=== PATIENT | male | born 1990 | race Caucasian/White ===

== ENCOUNTER 2019-08-20 14:36 | Inpatient (IN) | payer MEDICAID ==
[~2019-08-20] VITALS: Ht 188 cm; Wt 136.1 kg
[2019-08-20] MEDS ORDERED: NALOXONE HCL 0.4 MG/ML 1ML VIAL ONE ×2 (14:50→14:59)
[2019-08-20] MEDS: NALOXONE HCL 0.4 MG/ML 1ML VIAL IV PRN ×2 (15:00→15:15)
[2019-08-20] MEDS ORDERED: ONDANSETRON HCL 4MG/2ML INJ IV STA (15:10)
[2019-08-20] MEDS ORDERED: SODIUM CHLORIDE 0.9% 1,000 ML IV ONE (15:10)
[2019-08-20 15:26] LABS: BASOPHILS % 0.8 % (0.0-2.0); EOSINOPHILS % 0.5 % (0.0-5.0); HEMATOCRIT. 37.7 % (42.0-52.0); HEMOGLOBIN. 12.1 g/dL (14.0-18.0); LYMPHOCYTES % 20.4 % (20.0-50.0); MEAN CORPUSCULAR HEMOGLOBIN 26.5 pg (28.0-32.0); MEAN CORPUSCULAR VOLUME 82.5 fL (80.0-94.0); MEAN PLATELET VOLUME 6.9 fl (7.4-10.4); MONOCYTES % 8.8 % (2.0-8.0); NEUTROPHILS % 69.5 % (40.0-76.0); PLATELET 377 x1000/uL (130-400); RED BLOOD CELL COUNT 4.57 mill/uL (4.7-6.1); RED CELL DISTRIBUTION WIDTH 19.2 % (11.6-14.6)
[2019-08-20 15:30] LABS: CHLORIDE 92 mEq/L (98-107)
[2019-08-20 15:35] LABS: ETHANOL BLOOD < 10 mg/dL
[2019-08-20] MEDS ORDERED: NALOXONE 2 MG in SODIUM CHLORIDE 0.9% 500 ML IV SCH (15:45)
[2019-08-20] MEDS ORDERED: NALOXONE HCL 1 MG/ML 2ML VIAL ONE (15:50)
[2019-08-20] MEDS ORDERED: SUCCINYLCHOLINE CHLORIDE 200MG/10ML IV ONE (16:15)
[2019-08-20] MEDS ORDERED: PROPOFOL 10MG/ML 100ML 100 ML IV ONE (16:15)
[2019-08-20] MEDS ORDERED: MIDAZOLAM HCL 100 MG in DEXT 5% WATER 80 ML IV PRN ×2 (16:45→18:00)
[2019-08-20] MEDS ORDERED: FENTANYL CITRATE/PF 1,000 MCG in SODIUM CHLORIDE 0.9% 80 ML IV PRN (16:45)
[2019-08-20] MEDS ORDERED: PROPOFOL 10MG/ML 100ML 100 ML IV SCH (16:45)
[2019-08-20 17:32] LABS: BG BASE EXCESS -0.3 mmol/L (-2.0-2.0); BG CARBOXYHEMOGLOBIN 0.9 % (0.5-1.5); BG DEOXYHEMOGLOBIN 0.3 % (0.0-5.0); BG FRACTION INSPIRED OXYGEN 100; BG HCO3 ACT 27.5 mmol/L (22.0-26.0); BG METHEMOGLOBIN 0.3 % (0.0-1.5); BG OXYGEN SATURATION 99.7 % (92.0-98.5); BG OXYHEMOGLOBIN 98.5 % (94.0-97.0); BG PCO2 60.1 mmHg (35.0-45.0); BG PH 7.278 (7.350-7.450); BG PO2 469.9 mmHg (75.0-100.0); BG SAMPLE SITE RIGHT RADIAL; BG TIDAL VOLUME(mL) 500 mL; BG TOTAL HEMOGLOBIN 12.1 g/dL (12.0-18.0); BG VENT MODE VENT - A/C; BG VENT RATE 14 set
[2019-08-20] MEDS ORDERED: IPRATROPIUM/ALBUTEROL 0.5-3(2.5)MG/3ML NEB HHN SCH (18:00)
[2019-08-20 18:32] LABS: CLARITY URINE CLOUDY (CLEAR); COLOR URINE DARK YELLOW (YELLOW); KETONES URINE TRACE (NEGATIVE); LEUKOCYTE ESTERASE URINE TRACE (NEGATIVE); NITRITE URINE NEGATIVE (NEGATIVE); OCCULT BLOOD URINE 3+ (NEGATIVE); PH URINE 5.5 (4.5-8.0); PROTEIN URINE 3+ (NEGATIVE); SPECIFIC GRAVITY URINE 1.021 (1.005-1.030)
[2019-08-20 18:55] LABS: *AMPHETAMINES SCREEN URINE PRESUMTIVE POSITIVE (NEGATIVE)
[2019-08-20 18:56] LABS: *BARBITURATES SCREEN URINE NEGATIVE (NEGATIVE); *BENZODIAZEPINES SCREEN URINE NEGATIVE (NEGATIVE); *COCAINE SCREEN URINE NEGATIVE (NEGATIVE); CANNABINOID URINE SCREEN NEGATIVE (NEGATIVE); METHADONE URINE SCREEN NEGATIVE (NEGATIVE); OPIATES URINE SCREEN NEGATIVE (NEGATIVE); PHENCYCLIDINE URINE SCREEN NEGATIVE (NEGATIVE)
[2019-08-20] MEDS ORDERED: HYDROMORPHONE HCL/PF 2MG/ML CPJ IV PRN (19:00)
[2019-08-20] MEDS ORDERED: LORAZEPAM 2MG/ML CPJ IV PRN (19:00)
[2019-08-20] MEDS: PIPERACILLIN/TAZOBACTAM 3.375 G in DEXT 5% WATER 100 ML IV SCH (22:52)
[2019-08-20] MEDS: DEXT 5%/0.45% NACL KCL 10MEQ/L 1,000 ML IV SCH (23:30)
[2019-08-21] MEDS: ENOXAPARIN 40MG/0.4ML SYR SUBCUT SCH ×3 (01:20→21:14)
[2019-08-21] MEDS: PIPERACILLIN/TAZOBACTAM 3.375 G in DEXT 5% WATER 100 ML IV SCH ×2 (06:00→19:15)
[2019-08-21] MEDS ORDERED: PROPOFOL 10MG/ML 100ML 100 ML IV ONE (06:32)
[2019-08-21] MEDS: DEXT 5%/0.45% NACL KCL 10MEQ/L 1,000 ML IV SCH ×2 (09:20→22:32)
[2019-08-21 09:40] LABS: BG BASE EXCESS 2.5 mmol/L (-2.0-2.0); BG CARBOXYHEMOGLOBIN 0.9 % (0.5-1.5); BG DEOXYHEMOGLOBIN 1.5 % (0.0-5.0); BG FRACTION INSPIRED OXYGEN 40; BG METHEMOGLOBIN 0.2 % (0.0-1.5); BG OXYGEN SATURATION 98.5 % (92.0-98.5); BG OXYHEMOGLOBIN 97.4 % (94.0-97.0); BG PCO2 53.6 mmHg (35.0-45.0); BG PH 7.351 (7.350-7.450); BG SAMPLE SITE RIGHT RADIAL; BG TIDAL VOLUME(mL) 500 mL; BG TOTAL HEMOGLOBIN 11.6 g/dL (12.0-18.0); BG VENT MODE VENT - A/C; BG VENT RATE 16 set
[2019-08-21 09:53] LABS: CHLORIDE 97 mEq/L (98-107)
[2019-08-21 09:54] LABS: BASOPHILS % 0.8 % (0.0-2.0); EOSINOPHILS % 0.9 % (0.0-5.0); HEMATOCRIT. 33.8 % (42.0-52.0); HEMOGLOBIN. 10.7 g/dL (14.0-18.0); LYMPHOCYTES % 11.1 % (20.0-50.0); MEAN CORPUSCULAR HEMOGLOBIN 25.8 pg (28.0-32.0); MEAN CORPUSCULAR VOLUME 81.3 fL (80.0-94.0); MEAN PLATELET VOLUME 6.7 fl (7.4-10.4); MONOCYTES % 8.1 % (2.0-8.0); NEUTROPHILS % 79.1 % (40.0-76.0); PLATELET 283 x1000/uL (130-400); RED BLOOD CELL COUNT 4.15 mill/uL (4.7-6.1); RED CELL DISTRIBUTION WIDTH 19.4 % (11.6-14.6)
[2019-08-21] MEDS ORDERED: PROPOFOL 10MG/ML 100ML 100 ML IV PRN (11:15)
[2019-08-22] VITALS (32 sets, daily range): BP systolic 103–136; BP diastolic 36–90
[2019-08-22] MEDS: PIPERACILLIN/TAZOBACTAM 3.375 G in DEXT 5% WATER 100 ML IV SCH ×3 (06:00→20:24)
[2019-08-22] MEDS ORDERED: LORAZEPAM 2MG/ML CPJ IV ONE (08:45)
[2019-08-22] MEDS ORDERED: FUROSEMIDE 40MG/4ML VIAL IVP SCH (09:00)
[2019-08-22 09:06] LABS: BG CARBOXYHEMOGLOBIN 0.7 % (0.5-1.5); BG FRACTION INSPIRED OXYGEN 40; BG HCO3 ACT 27.7 mmol/L (22.0-26.0); BG METHEMOGLOBIN 0.3 % (0.0-1.5); BG PCO2 42.9 mmHg (35.0-45.0); BG PH 7.428 (7.350-7.450); BG SAMPLE SITE RIGHT RADIAL; BG TIDAL VOLUME(mL) 500 mL; BG TOTAL HEMOGLOBIN 11.1 g/dL (12.0-18.0); BG VENT MODE VENT - A/C; BG VENT RATE 16 set
[2019-08-22] MEDS ORDERED: DILTIAZEM HCL 5MG/ML 25ML VIAL IV SCH (09:30)
[2019-08-22] MEDS ORDERED: DILTIAZEM HCL 5MG/ML 5ML VIAL IV SCH (09:30)
[2019-08-22] MEDS ORDERED: LIDOCAINE HCL 1% 20ML VIAL (Pyxis) INJ ONE (09:40)
[2019-08-22] MEDS: ENOXAPARIN 40MG/0.4ML SYR SUBCUT SCH (09:44)
[2019-08-22] MEDS: IPRATROPIUM BROMIDE (0.02%) 0.5MG/2.5ML NEB HHN SCH ×3 (09:54→19:54)
[2019-08-22] MEDS: DEXT 5%/0.45% NACL KCL 10MEQ/L 1,000 ML IV SCH ×2 (12:00→13:00)
[2019-08-22] MEDS: PANTOPRAZOLE SODIUM 40 MG/VIAL IV SCH (13:33)
[2019-08-22] MEDS: FUROSEMIDE 40MG/4ML VIAL IVP SCH (13:33)
[2019-08-22] MEDS: ASPIRIN 81MG TABLET PO SCH (13:33)
[2019-08-22] MEDS: DILTIAZEM HCL 125 MG in DEXT 5% WATER 100 ML IV PRN (13:35)
[2019-08-22] MEDS: PROPOFOL 10MG/ML 100ML 100 ML IV PRN ×2 (13:43→20:56)
[2019-08-22] MEDS ORDERED: VANCOMYCIN 2,000 MG in DEXT 5% WATER 500 ML IV SCH (14:00)
[2019-08-22 16:34] LABS: INR 1.3; PROTHROMBIN TIME 13.6 sec (9.6-11.0)
[2019-08-22] MEDS: ENOXAPARIN 150MG/ML SYR SUBCUT SCH (17:44)
[2019-08-22] MEDS: VANCOMYCIN 1500MG in DEXTROSE 5% WATER 250ML IV SCH (23:00)
[2019-08-23] VITALS (79 sets, daily range): BP systolic 88–195; BP diastolic 36–172
[2019-08-23] MEDS: PROPOFOL 10MG/ML 100ML 100 ML IV PRN ×5 (00:48→21:06)
[2019-08-23] MEDS: IPRATROPIUM BROMIDE (0.02%) 0.5MG/2.5ML NEB HHN SCH ×4 (01:55→20:18)
[2019-08-23] MEDS: DEXT 5%/0.45% NACL KCL 10MEQ/L 1,000 ML IV SCH ×2 (02:48→13:47)
[2019-08-23] MEDS: PIPERACILLIN/TAZOBACTAM 3.375 G in DEXT 5% WATER 100 ML IV SCH ×4 (02:49→20:00)
[2019-08-23] MEDS: ENOXAPARIN 150MG/ML SYR SUBCUT SCH ×2 (06:57→17:11)
[2019-08-23 06:58] LABS: BASOPHILS % 0.6 % (0.0-2.0); EOSINOPHILS % 3.8 % (0.0-5.0); HEMOGLOBIN. 10.4 g/dL (14.0-18.0); LYMPHOCYTES % 14.9 % (20.0-50.0); MEAN CORPUSCULAR HEMOGLOBIN 25.8 pg (28.0-32.0); MEAN CORPUSCULAR VOLUME 81.6 fL (80.0-94.0); MEAN PLATELET VOLUME 6.9 fl (7.4-10.4); MONOCYTES % 8.4 % (2.0-8.0); NEUTROPHILS % 72.3 % (40.0-76.0); PLATELET 277 x1000/uL (130-400); RED BLOOD CELL COUNT 4.04 mill/uL (4.7-6.1); RED CELL DISTRIBUTION WIDTH 19.5 % (11.6-14.6)
[2019-08-23] MEDS: DILTIAZEM HCL 125 MG in DEXT 5% WATER 100 ML IV PRN (06:58)
[2019-08-23 07:14] LABS: CHLORIDE 96 mEq/L (98-107)
[2019-08-23] MEDS: FUROSEMIDE 40MG/4ML VIAL IVP SCH (08:46)
[2019-08-23] MEDS: ASPIRIN 81MG TABLET PO SCH (08:46)
[2019-08-23] MEDS: PANTOPRAZOLE SODIUM 40 MG/VIAL IV SCH (08:46)
[2019-08-23 08:48] LABS: BG BASE EXCESS 0.7 mmol/L (-2.0-2.0); BG CARBOXYHEMOGLOBIN 0.6 % (0.5-1.5); BG DEOXYHEMOGLOBIN 2.8 % (0.0-5.0); BG FRACTION INSPIRED OXYGEN 40; BG HCO3 ACT 26.1 mmol/L (22.0-26.0); BG METHEMOGLOBIN 0.2 % (0.0-1.5); BG OXYGEN SATURATION 97.2 % (92.0-98.5); BG OXYHEMOGLOBIN 96.4 % (94.0-97.0); BG PCO2 45.4 mmHg (35.0-45.0); BG PH 7.378 (7.350-7.450); BG PO2 97.8 mmHg (75.0-100.0); BG SAMPLE SITE RIGHT RADIAL; BG TIDAL VOLUME(mL) 500 mL; BG TOTAL HEMOGLOBIN 11.4 g/dL (12.0-18.0); BG VENT MODE VENT - A/C; BG VENT RATE 16 set
[2019-08-23] MEDS: VANCOMYCIN 1500MG in DEXTROSE 5% WATER 250ML IV SCH ×2 (11:31→23:41)
[2019-08-23] MEDS: DILTIAZEM HCL 30MG TABLET PO SCH ×2 (12:00→17:10)
[2019-08-23] MEDS: ACETYLCYSTEINE 100MG/ML 10% VIAL 4ML INH SCH ×2 (14:52→20:18)
[2019-08-24] VITALS (92 sets, daily range): BP systolic 68–142; BP diastolic 39–103
[2019-08-24] MEDS: DILTIAZEM HCL 30MG TABLET PO SCH ×5 (00:07→23:27)
[2019-08-24] MEDS: PIPERACILLIN/TAZOBACTAM 3.375 G in DEXT 5% WATER 100 ML IV SCH ×4 (02:00→20:57)
[2019-08-24] MEDS: IPRATROPIUM BROMIDE (0.02%) 0.5MG/2.5ML NEB HHN SCH ×4 (02:16→20:33)
[2019-08-24] MEDS: PROPOFOL 10MG/ML 100ML 100 ML IV PRN ×4 (02:43→21:55)
[2019-08-24] MEDS: DEXT 5%/0.45% NACL KCL 10MEQ/L 1,000 ML IV SCH ×2 (05:24→15:22)
[2019-08-24] MEDS: ENOXAPARIN 150MG/ML SYR SUBCUT SCH ×2 (06:00→17:07)
[2019-08-24 07:29] LABS: CHLORIDE 98 mEq/L (98-107)
[2019-08-24 07:37] LABS: BASOPHILS % 0.9 % (0.0-2.0); EOSINOPHILS % 3.3 % (0.0-5.0); HEMATOCRIT. 32.8 % (42.0-52.0); HEMOGLOBIN. 10.7 g/dL (14.0-18.0); LYMPHOCYTES % 9.4 % (20.0-50.0); MEAN CORPUSCULAR HEMOGLOBIN 26.4 pg (28.0-32.0); MEAN CORPUSCULAR VOLUME 81.1 fL (80.0-94.0); MEAN PLATELET VOLUME 6.9 fl (7.4-10.4); NEUTROPHILS % 78.4 % (40.0-76.0); PLATELET 307 x1000/uL (130-400); RED BLOOD CELL COUNT 4.05 mill/uL (4.7-6.1); RED CELL DISTRIBUTION WIDTH 19.3 % (11.6-14.6)
[2019-08-24] MEDS: ACETYLCYSTEINE 100MG/ML 10% VIAL 4ML INH SCH ×2 (08:36→20:33)
[2019-08-24] MEDS: FUROSEMIDE 40MG/4ML VIAL IVP SCH (09:09)
[2019-08-24] MEDS: ASPIRIN 81MG TABLET PO SCH (09:09)
[2019-08-24] MEDS: PANTOPRAZOLE SODIUM 40 MG/VIAL IV SCH (09:09)
[2019-08-24] MEDS: ACETAMINOPHEN 325MG TABLET PO PRN (09:10)
[2019-08-24] MEDS: VANCOMYCIN 1250MG in DEXTROSE 5% WATER 250ML IV SCH (17:05)
[2019-08-24] MEDS: IPRATROPIUM/ALBUTEROL 0.5-3(2.5)MG/3ML NEB HHN PRN (20:33)
[2019-08-25] VITALS (84 sets, daily range): BP systolic 87–137; BP diastolic 47–97
[2019-08-25] MEDS: IPRATROPIUM BROMIDE (0.02%) 0.5MG/2.5ML NEB HHN SCH ×5 (01:57→20:47)
[2019-08-25] MEDS: PIPERACILLIN/TAZOBACTAM 3.375 G in DEXT 5% WATER 100 ML IV SCH ×4 (02:10→21:20)
[2019-08-25] MEDS: PROPOFOL 10MG/ML 100ML 100 ML IV PRN ×5 (02:11→22:00)
[2019-08-25] MEDS: DILTIAZEM HCL 30MG TABLET PO SCH (05:15)
[2019-08-25] MEDS: VANCOMYCIN 1250MG in DEXTROSE 5% WATER 250ML IV SCH ×2 (05:15→21:20)
[2019-08-25] MEDS: DEXT 5%/0.45% NACL KCL 10MEQ/L 1,000 ML IV SCH (05:15)
[2019-08-25] MEDS: ENOXAPARIN 150MG/ML SYR SUBCUT SCH ×2 (05:16→18:15)
[2019-08-25 06:26] LABS: BASOPHILS % 0.6 % (0.0-2.0); EOSINOPHILS % 4.1 % (0.0-5.0); HEMATOCRIT. 34.1 % (42.0-52.0); LYMPHOCYTES % 11.8 % (20.0-50.0); MEAN CORPUSCULAR HEMOGLOBIN 26.4 pg (28.0-32.0); MEAN CORPUSCULAR VOLUME 81.8 fL (80.0-94.0); MEAN PLATELET VOLUME 6.8 fl (7.4-10.4); MONOCYTES % 6.6 % (2.0-8.0); NEUTROPHILS % 76.9 % (40.0-76.0); PLATELET 313 x1000/uL (130-400); RED BLOOD CELL COUNT 4.17 mill/uL (4.7-6.1); RED CELL DISTRIBUTION WIDTH 19.5 % (11.6-14.6)
[2019-08-25 06:31] LABS: CHLORIDE 99 mEq/L (98-107)
[2019-08-25 08:34] LABS: BG BASE EXCESS 2.7 mmol/L (-2.0-2.0); BG CARBOXYHEMOGLOBIN 0.8 % (0.5-1.5); BG DEOXYHEMOGLOBIN 3.2 % (0.0-5.0); BG FRACTION INSPIRED OXYGEN 40; BG HCO3 ACT 28.1 mmol/L (22.0-26.0); BG METHEMOGLOBIN 0.1 % (0.0-1.5); BG OXYGEN SATURATION 96.8 % (92.0-98.5); BG OXYHEMOGLOBIN 95.9 % (94.0-97.0); BG PH 7.395 (7.350-7.450); BG PO2 90.8 mmHg (75.0-100.0); BG SAMPLE SITE RIGHT RADIAL; BG TIDAL VOLUME(mL) 500 mL; BG TOTAL HEMOGLOBIN 11.5 g/dL (12.0-18.0); BG VENT MODE VENT - A/C; BG VENT RATE 16 set
[2019-08-25] MEDS: PANTOPRAZOLE SODIUM 40 MG/VIAL IV SCH (08:58)
[2019-08-25] MEDS: ASPIRIN 81MG TABLET PO SCH (08:58)
[2019-08-25] MEDS: FUROSEMIDE 40MG/4ML VIAL IVP SCH (08:58)
[2019-08-25] MEDS: ACETYLCYSTEINE 100MG/ML 10% VIAL 4ML INH SCH ×2 (09:28→20:47)
[2019-08-25] MEDS ORDERED: DIGOXIN 500MCG/2ML AMP IV SCH (10:00)
[2019-08-25] MEDS: METOPROLOL TARTRATE 25MG TABLET PO SCH (21:21)
[2019-08-26] VITALS (69 sets, daily range): BP systolic 97–169; BP diastolic 37–104
[2019-08-26] MEDS: IPRATROPIUM BROMIDE (0.02%) 0.5MG/2.5ML NEB HHN SCH ×4 (02:05→20:52)
[2019-08-26] MEDS: PIPERACILLIN/TAZOBACTAM 3.375 G in DEXT 5% WATER 100 ML IV SCH ×4 (02:12→20:43)
[2019-08-26] MEDS: ENOXAPARIN 150MG/ML SYR SUBCUT SCH (05:41)
[2019-08-26] MEDS: PROPOFOL 10MG/ML 100ML 100 ML IV PRN ×4 (05:42→21:12)
[2019-08-26 05:52] LABS: BASOPHILS % 0.7 % (0.0-2.0); EOSINOPHILS % 5.2 % (0.0-5.0); HEMOGLOBIN. 10.6 g/dL (14.0-18.0); LYMPHOCYTES % 10.3 % (20.0-50.0); MEAN PLATELET VOLUME 6.8 fl (7.4-10.4); MONOCYTES % 8.7 % (2.0-8.0); NEUTROPHILS % 75.1 % (40.0-76.0); PLATELET 294 x1000/uL (130-400); RED BLOOD CELL COUNT 4.08 mill/uL (4.7-6.1); RED CELL DISTRIBUTION WIDTH 19.2 % (11.6-14.6)
[2019-08-26 05:57] LABS: CHLORIDE 99 mEq/L (98-107)
[2019-08-26] MEDS: ACETYLCYSTEINE 100MG/ML 10% VIAL 4ML INH SCH ×2 (08:06→20:53)
[2019-08-26] MEDS: PANTOPRAZOLE SODIUM 40 MG/VIAL IV SCH (08:39)
[2019-08-26] MEDS: FUROSEMIDE 40MG/4ML VIAL IVP SCH (08:40)
[2019-08-26] MEDS: METOPROLOL TARTRATE 25MG TABLET PO SCH ×2 (08:40→20:43)
[2019-08-26] MEDS: ASPIRIN 81MG TABLET PO SCH (08:40)
[2019-08-26] MEDS: VANCOMYCIN 1250MG in DEXTROSE 5% WATER 250ML IV SCH (09:00)
[2019-08-26 12:51] LABS: INR 1.2; PROTHROMBIN TIME 12.7 sec (9.6-11.0)
[2019-08-26] MEDS: VANCOMYCIN 1 G PREMIX 200 ML IV SCH (21:00)
[2019-08-27] VITALS (48 sets, daily range): BP systolic 84–138; BP diastolic 45–87
[2019-08-27] MEDS: PROPOFOL 10MG/ML 100ML 100 ML IV PRN ×5 (01:31→18:36)
[2019-08-27] MEDS: IPRATROPIUM BROMIDE (0.02%) 0.5MG/2.5ML NEB HHN SCH ×4 (04:29→20:44)
[2019-08-27] MEDS: ACETAMINOPHEN 325MG TABLET PO PRN (04:35)
[2019-08-27 07:43] LABS: BASOPHILS % 0.8 % (0.0-2.0); EOSINOPHILS % 5.3 % (0.0-5.0); HEMATOCRIT. 31.8 % (42.0-52.0); HEMOGLOBIN. 10.4 g/dL (14.0-18.0); LYMPHOCYTES % 15.2 % (20.0-50.0); MEAN CORPUSCULAR HEMOGLOBIN 26.4 pg (28.0-32.0); MEAN CORPUSCULAR VOLUME 80.9 fL (80.0-94.0); MEAN PLATELET VOLUME 7.1 fl (7.4-10.4); MONOCYTES % 10.6 % (2.0-8.0); NEUTROPHILS % 68.1 % (40.0-76.0); PLATELET 274 x1000/uL (130-400); RED BLOOD CELL COUNT 3.94 mill/uL (4.7-6.1); RED CELL DISTRIBUTION WIDTH 19.5 % (11.6-14.6)
[2019-08-27 07:47] LABS: CHLORIDE 98 mEq/L (98-107)
[2019-08-27] MEDS: ACETYLCYSTEINE 100MG/ML 10% VIAL 4ML INH SCH ×2 (08:25→20:44)
[2019-08-27 09:05] LABS: BG BASE EXCESS 6.5 mmol/L (-2.0-2.0); BG CARBOXYHEMOGLOBIN 0.4 % (0.5-1.5); BG DEOXYHEMOGLOBIN 0.6 % (0.0-5.0); BG FRACTION INSPIRED OXYGEN 50; BG HCO3 ACT 30.6 mmol/L (22.0-26.0); BG METHEMOGLOBIN 0.4 % (0.0-1.5); BG OXYGEN SATURATION 99.4 % (92.0-98.5); BG OXYHEMOGLOBIN 98.6 % (94.0-97.0); BG PCO2 41.7 mmHg (35.0-45.0); BG PH 7.483 (7.350-7.450); BG PO2 190.6 mmHg (75.0-100.0); BG SAMPLE SITE LEFT RADIAL; BG TIDAL VOLUME(mL) 500 mL; BG TOTAL HEMOGLOBIN 10.7 g/dL (12.0-18.0); BG VENT MODE VENT - A/C; BG VENT RATE 16 set
[2019-08-27] MEDS: PANTOPRAZOLE SODIUM 40 MG/VIAL IV SCH (09:18)
[2019-08-27] MEDS: FUROSEMIDE 40MG/4ML VIAL IVP SCH (09:18)
[2019-08-27] MEDS: VANCOMYCIN 1 G PREMIX 200 ML IV SCH ×2 (09:19→21:01)
[2019-08-27] MEDS: METOPROLOL TARTRATE 25MG TABLET PO SCH ×2 (09:21→21:02)
[2019-08-27] MEDS: SODIUM CHLORIDE 0.9% 1,000 ML IV SCH (11:44)
[2019-08-27] MEDS: QUETIAPINE FUMARATE 25MG TABLET PO SCH (21:02)
[2019-08-28] VITALS (47 sets, daily range): BP systolic 83–136; BP diastolic 50–117
[2019-08-28] MEDS: PROPOFOL 10MG/ML 100ML 100 ML IV PRN ×2 (00:13→05:01)
[2019-08-28] MEDS: SODIUM CHLORIDE 0.9% 1,000 ML IV SCH ×2 (01:12→16:54)
[2019-08-28] MEDS: IPRATROPIUM BROMIDE (0.02%) 0.5MG/2.5ML NEB HHN SCH ×4 (03:24→20:53)
[2019-08-28 04:58] LABS: BASOPHILS % 0.8 % (0.0-2.0); EOSINOPHILS % 3.9 % (0.0-5.0); HEMATOCRIT. 31.7 % (42.0-52.0); HEMOGLOBIN. 10.4 g/dL (14.0-18.0); LYMPHOCYTES % 17.7 % (20.0-50.0); MEAN CORPUSCULAR HEMOGLOBIN 26.7 pg (28.0-32.0); MEAN CORPUSCULAR VOLUME 81.5 fL (80.0-94.0); MEAN PLATELET VOLUME 7.2 fl (7.4-10.4); MONOCYTES % 11.7 % (2.0-8.0); NEUTROPHILS % 65.9 % (40.0-76.0); PLATELET 288 x1000/uL (130-400); RED CELL DISTRIBUTION WIDTH 19.6 % (11.6-14.6)
[2019-08-28 05:01] LABS: CHLORIDE 99 mEq/L (98-107)
[2019-08-28] MEDS: ACETYLCYSTEINE 100MG/ML 10% VIAL 4ML INH SCH (08:45)
[2019-08-28] MEDS: PANTOPRAZOLE SODIUM 40 MG/VIAL IV SCH (09:30)
[2019-08-28] MEDS ORDERED: DIGOXIN 500MCG/2ML AMP IV NR (09:30)
[2019-08-28] MEDS: QUETIAPINE FUMARATE 25MG TABLET PO SCH ×2 (09:30→21:06)
[2019-08-28] MEDS: FUROSEMIDE 40MG/4ML VIAL IVP SCH (09:31)
[2019-08-28] MEDS: METOPROLOL TARTRATE 25MG TABLET PO SCH ×2 (09:31→21:06)
[2019-08-28] MEDS ORDERED: PROPOFOL 10MG/ML 100ML 100 ML IV PRN (10:45)
[2019-08-28] MEDS ORDERED: ROCURONIUM BROMIDE 10MG/ML VIAL 5ML IV ONE (11:45)
[2019-08-28] MEDS ORDERED: MIDAZOLAM HCL 5 MG/5 ML VIAL ONE ×2 (11:45→14:40)
[2019-08-28] MEDS ORDERED: CEFAZOLIN SODIUM 1000MG/VIAL ONE (12:06)
[2019-08-28 13:59] LABS: BG BASE EXCESS 4.8 mmol/L (-2.0-2.0); BG CARBOXYHEMOGLOBIN 0.3 % (0.5-1.5); BG DEOXYHEMOGLOBIN 2.8 % (0.0-5.0); BG FRACTION INSPIRED OXYGEN 40; BG HCO3 ACT 30.1 mmol/L (22.0-26.0); BG METHEMOGLOBIN 0.4 % (0.0-1.5); BG OXYGEN SATURATION 97.2 % (92.0-98.5); BG OXYHEMOGLOBIN 96.5 % (94.0-97.0); BG PCO2 48.2 mmHg (35.0-45.0); BG PH 7.414 (7.350-7.450); BG PO2 99.7 mmHg (75.0-100.0); BG SAMPLE SITE RIGHT RADIAL; BG TIDAL VOLUME(mL) 500 mL; BG TOTAL HEMOGLOBIN 11.6 g/dL (12.0-18.0); BG VENT MODE VENT - A/C; BG VENT RATE 14 set
[2019-08-28] MEDS ORDERED: CEFAZOLIN 1000MG PREMIX 50 ML IV NR (14:00)
[2019-08-28] MEDS ORDERED: FENTANYL CITRATE/PF 50MCG/ML 2ML VIAL ONE (14:40)
[2019-08-28] MEDS ORDERED: MIDAZOLAM HCL 5 MG/5 ML VIAL IV PRN (14:42)
[2019-08-28] MEDS: LORAZEPAM 2MG/ML CPJ IV PRN (18:28)
[2019-08-28] MEDS: ACETAMINOPHEN 325MG TABLET PO PRN (19:51)
[2019-08-29] VITALS (24 sets, daily range): BP systolic 105–139; BP diastolic 49–110
[2019-08-29] MEDS: IPRATROPIUM BROMIDE (0.02%) 0.5MG/2.5ML NEB HHN SCH ×5 (01:32→22:53)
[2019-08-29] MEDS: SODIUM CHLORIDE 0.9% 1,000 ML IV SCH ×2 (04:00→15:53)
[2019-08-29 04:58] LABS: BASOPHILS % 1.3 % (0.0-2.0); EOSINOPHILS % 1.8 % (0.0-5.0); HEMATOCRIT. 32.7 % (42.0-52.0); HEMOGLOBIN. 10.4 g/dL (14.0-18.0); LYMPHOCYTES % 15.6 % (20.0-50.0); MEAN CORPUSCULAR HEMOGLOBIN 25.8 pg (28.0-32.0); MEAN CORPUSCULAR VOLUME 80.9 fL (80.0-94.0); MEAN PLATELET VOLUME 7.1 fl (7.4-10.4); MONOCYTES % 11.6 % (2.0-8.0); NEUTROPHILS % 69.7 % (40.0-76.0); PLATELET 300 x1000/uL (130-400); RED BLOOD CELL COUNT 4.04 mill/uL (4.7-6.1); RED CELL DISTRIBUTION WIDTH 19.8 % (11.6-14.6)
[2019-08-29] MEDS: MORPHINE SULFATE 2 MG/ML CPJ (NOT FOR IM USE) IV PRN (05:12)
[2019-08-29] MEDS: ACETAMINOPHEN 325MG TABLET PO PRN ×3 (05:44→20:20)
[2019-08-29 06:45] LABS: CHLORIDE 105 mEq/L (98-107)
[2019-08-29] MEDS ORDERED: DIGOXIN 500MCG/2ML AMP IV NR (06:45)
[2019-08-29] MEDS: PANTOPRAZOLE SODIUM 40 MG/VIAL IV SCH (07:41)
[2019-08-29] MEDS: FUROSEMIDE 40MG/4ML VIAL IVP SCH (07:41)
[2019-08-29] MEDS: METOPROLOL TARTRATE 25MG TABLET PO SCH ×2 (07:42→20:43)
[2019-08-29] MEDS: ZINC SULFATE 220 MG ( 50 ) CAPSULE PO SCH (07:42)
[2019-08-29] MEDS: ASCORBIC ACID 250 MG TABLET PO SCH (07:42)
[2019-08-29] MEDS: MULTIVITAMINS,THER W-MINERALS TABLET PO SCH (07:42)
[2019-08-29] MEDS: QUETIAPINE FUMARATE 25MG TABLET PO SCH ×2 (07:42→20:43)
[2019-08-29] MEDS: LORAZEPAM 2MG/ML CPJ IV PRN (10:46)
[2019-08-29] MEDS ORDERED: BISACODYL 10MG SUPP PR SCH (17:30)
[2019-08-29] MEDS: METOCLOPRAMIDE HCL 10MG/2ML VIAL IV SCH ×2 (17:38→23:39)
[2019-08-29] MEDS ORDERED: SORBITOL 70% SOLN 30ML PO SCH (18:00)
[2019-08-29] MEDS ORDERED: SORBITOL 70% SOLN 30ML PO NR (21:00)
[2019-08-30] VITALS (13 sets, daily range): BP systolic 107–158; BP diastolic 48–97
[2019-08-30] MEDS: IPRATROPIUM BROMIDE (0.02%) 0.5MG/2.5ML NEB HHN SCH ×5 (05:07→21:13)
[2019-08-30] MEDS: METOCLOPRAMIDE HCL 10MG/2ML VIAL IV SCH ×4 (05:42→23:49)
[2019-08-30] MEDS: ZINC SULFATE 220 MG ( 50 ) CAPSULE PO SCH (08:19)
[2019-08-30] MEDS: POLYETHYLENE GLYCOL 3350 (17GM) 1 DOSE PACK PO SCH (08:19)
[2019-08-30] MEDS: QUETIAPINE FUMARATE 25MG TABLET PO SCH ×2 (08:19→20:11)
[2019-08-30] MEDS: MULTIVITAMINS,THER W-MINERALS TABLET PO SCH (08:20)
[2019-08-30] MEDS: ASCORBIC ACID 250 MG TABLET PO SCH (08:20)
[2019-08-30] MEDS ORDERED: DOCUSATE SODIUM SUGAR FREE 100MG/10ML UDC NG SCH (09:00)
[2019-08-30] MEDS: FUROSEMIDE 40MG/4ML VIAL IVP SCH (09:27)
[2019-08-30] MEDS: PANTOPRAZOLE SODIUM 40 MG/VIAL IV SCH (09:28)
[2019-08-30 09:33] LABS: BASOPHILS % 1.4 % (0.0-2.0); HEMATOCRIT. 31.8 % (42.0-52.0); HEMOGLOBIN. 10.1 g/dL (14.0-18.0); LYMPHOCYTES % 16.6 % (20.0-50.0); MEAN CORPUSCULAR HEMOGLOBIN 25.5 pg (28.0-32.0); MEAN CORPUSCULAR VOLUME 80.6 fL (80.0-94.0); MEAN PLATELET VOLUME 7.2 fl (7.4-10.4); MONOCYTES % 10.2 % (2.0-8.0); NEUTROPHILS % 69.8 % (40.0-76.0); PLATELET 288 x1000/uL (130-400); RED BLOOD CELL COUNT 3.95 mill/uL (4.7-6.1)
[2019-08-30 09:37] LABS: CHLORIDE 105 mEq/L (98-107)
[2019-08-30] MEDS: METOPROLOL TARTRATE 25MG TABLET PO SCH ×2 (11:08→20:11)
[2019-08-30] MEDS: LOSARTAN POTASSIUM 25 MG TABLET PO SCH (11:09)
[2019-08-30] MEDS: DOCUSATE SODIUM SUGAR FREE 100MG/10ML UDC NG SCH (17:12)
[2019-08-31] VITALS (15 sets, daily range): BP systolic 106–148; BP diastolic 49–75
[2019-08-31] MEDS: IPRATROPIUM BROMIDE (0.02%) 0.5MG/2.5ML NEB HHN SCH ×4 (02:49→20:22)
[2019-08-31] MEDS: METOCLOPRAMIDE HCL 10MG/2ML VIAL IV SCH ×4 (05:12→23:07)
[2019-08-31] MEDS: DOCUSATE SODIUM SUGAR FREE 100MG/10ML UDC NG SCH ×2 (08:18→17:00)
[2019-08-31] MEDS: POLYETHYLENE GLYCOL 3350 (17GM) 1 DOSE PACK PO SCH (08:18)
[2019-08-31] MEDS: QUETIAPINE FUMARATE 25MG TABLET PO SCH ×2 (08:31→20:20)
[2019-08-31] MEDS: ZINC SULFATE 220 MG ( 50 ) CAPSULE PO SCH (08:31)
[2019-08-31] MEDS: FUROSEMIDE 40MG/4ML VIAL IVP SCH (08:31)
[2019-08-31] MEDS: METOPROLOL TARTRATE 25MG TABLET PO SCH ×2 (08:31→20:20)
[2019-08-31] MEDS: MULTIVITAMINS,THER W-MINERALS TABLET PO SCH (08:31)
[2019-08-31] MEDS: LOSARTAN POTASSIUM 25 MG TABLET PO SCH (08:31)
[2019-08-31] MEDS: ASCORBIC ACID 250 MG TABLET PO SCH (08:31)
[2019-08-31] MEDS: PANTOPRAZOLE SODIUM 40 MG/VIAL IV SCH (08:31)
[2019-09-01] VITALS (14 sets, daily range): BP systolic 100–171; BP diastolic 41–84
[2019-09-01] MEDS: LORAZEPAM 2MG/ML CPJ IV PRN (00:42)
[2019-09-01] MEDS: ONDANSETRON HCL 4MG/2ML INJ IV PRN (01:16)
[2019-09-01] MEDS: MORPHINE SULFATE 2 MG/ML CPJ (NOT FOR IM USE) IV PRN (01:17)
[2019-09-01] MEDS: IPRATROPIUM BROMIDE (0.02%) 0.5MG/2.5ML NEB HHN SCH ×4 (01:37→20:15)
[2019-09-01] MEDS: ACETAMINOPHEN 325MG TABLET PO PRN ×3 (04:20→20:34)
[2019-09-01] MEDS: PANTOPRAZOLE SODIUM 40 MG/VIAL IV SCH (08:09)
[2019-09-01] MEDS: DOCUSATE SODIUM SUGAR FREE 100MG/10ML UDC NG SCH ×2 (08:09→17:02)
[2019-09-01] MEDS: FUROSEMIDE 40MG/4ML VIAL IVP SCH (08:09)
[2019-09-01] MEDS: POLYETHYLENE GLYCOL 3350 (17GM) 1 DOSE PACK PO SCH (08:09)
[2019-09-01] MEDS: MULTIVITAMINS,THER W-MINERALS TABLET PO SCH (08:09)
[2019-09-01] MEDS: ZINC SULFATE 220 MG ( 50 ) CAPSULE PO SCH (08:09)
[2019-09-01] MEDS: QUETIAPINE FUMARATE 25MG TABLET PO SCH (08:09)
[2019-09-01] MEDS: METOPROLOL TARTRATE 25MG TABLET PO SCH ×2 (08:10→20:33)
[2019-09-01] MEDS: LOSARTAN POTASSIUM 25 MG TABLET PO SCH (08:11)
[2019-09-01] MEDS: ASCORBIC ACID 250 MG TABLET PO SCH (08:11)
[2019-09-01 08:37] LABS: BG BASE EXCESS 6.1 mmol/L (-2.0-2.0); BG CARBOXYHEMOGLOBIN 0.6 % (0.5-1.5); BG DEOXYHEMOGLOBIN 1.4 % (0.0-5.0); BG FRACTION INSPIRED OXYGEN 40; BG HCO3 ACT 29.4 mmol/L (22.0-26.0); BG METHEMOGLOBIN 0.3 % (0.0-1.5); BG OXYGEN SATURATION 98.6 % (92.0-98.5); BG OXYHEMOGLOBIN 97.7 % (94.0-97.0); BG PCO2 37.8 mmHg (35.0-45.0); BG PH 7.509 (7.350-7.450); BG PO2 128.2 mmHg (75.0-100.0); BG SAMPLE SITE RIGHT RADIAL; BG TIDAL VOLUME(mL) 500 mL; BG TOTAL HEMOGLOBIN 10.8 g/dL (12.0-18.0); BG VENT MODE VENT - A/C; BG VENT RATE 14 set
[2019-09-01] MEDS: NYSTATIN/TRIAMCIN CREAM 30GM TOP SCH ×2 (15:00→17:00)
[2019-09-01 16:23] LABS: BASOPHILS % 0.9 % (0.0-2.0); EOSINOPHILS % 2.9 % (0.0-5.0); HEMATOCRIT. 31.5 % (42.0-52.0); HEMOGLOBIN. 9.7 g/dL (14.0-18.0); LYMPHOCYTES % 15.6 % (20.0-50.0); MEAN CORPUSCULAR HEMOGLOBIN 25.1 pg (28.0-32.0); MEAN CORPUSCULAR VOLUME 81.6 fL (80.0-94.0); MEAN PLATELET VOLUME 7.7 fl (7.4-10.4); MONOCYTES % 8.5 % (2.0-8.0); NEUTROPHILS % 72.1 % (40.0-76.0); PLATELET 286 x1000/uL (130-400); RED BLOOD CELL COUNT 3.86 mill/uL (4.7-6.1); RED CELL DISTRIBUTION WIDTH 20.1 % (11.6-14.6)
[2019-09-01 16:40] LABS: CHLORIDE 108 mEq/L (98-107)
[2019-09-01 19:21] LABS: CLARITY URINE CLEAR (CLEAR); COLOR URINE DARK YELLOW (YELLOW); KETONES URINE TRACE (NEGATIVE); LEUKOCYTE ESTERASE URINE TRACE (NEGATIVE); NITRITE URINE NEGATIVE (NEGATIVE); OCCULT BLOOD URINE NEGATIVE (NEGATIVE); PROTEIN URINE 1+ (NEGATIVE); SPECIFIC GRAVITY URINE 1.027 (1.005-1.030); UROBILINOGEN URINE >8.0 E.U./dL (0.2-1.0)
[2019-09-01] MEDS ORDERED: POTASSIUM CHLORIDE INJ 40 MEQ in DEXT 5% WATER 250 ML IV SCH (21:00)
[2019-09-02] VITALS (12 sets, daily range): BP systolic 95–125; BP diastolic 43–81
[2019-09-02] MEDS: IPRATROPIUM BROMIDE (0.02%) 0.5MG/2.5ML NEB HHN SCH ×4 (01:39→22:32)
[2019-09-02] MEDS: POLYETHYLENE GLYCOL 3350 (17GM) 1 DOSE PACK PO SCH (09:00)
[2019-09-02] MEDS: DOCUSATE SODIUM SUGAR FREE 100MG/10ML UDC NG SCH ×2 (09:16→16:08)
[2019-09-02] MEDS: FUROSEMIDE 40MG/4ML VIAL IVP SCH (09:16)
[2019-09-02] MEDS: PANTOPRAZOLE SODIUM 40 MG/VIAL IV SCH (09:16)
[2019-09-02] MEDS: MULTIVITAMINS,THER W-MINERALS TABLET PO SCH (09:17)
[2019-09-02] MEDS: METOPROLOL TARTRATE 25MG TABLET PO SCH ×2 (09:17→20:52)
[2019-09-02] MEDS: LOSARTAN POTASSIUM 25 MG TABLET PO SCH (09:17)
[2019-09-02] MEDS: ZINC SULFATE 220 MG ( 50 ) CAPSULE PO SCH (09:17)
[2019-09-02] MEDS: ASCORBIC ACID 250 MG TABLET PO SCH (09:17)
[2019-09-02] MEDS: NYSTATIN/TRIAMCIN CREAM 30GM TOP SCH ×3 (09:18→16:08)
[2019-09-02 09:30] LABS: BG BASE EXCESS 8.2 mmol/L (-2.0-2.0); BG CARBOXYHEMOGLOBIN 0.8 % (0.5-1.5); BG DEOXYHEMOGLOBIN 2.1 % (0.0-5.0); BG FRACTION INSPIRED OXYGEN 35; BG HCO3 ACT 32.5 mmol/L (22.0-26.0); BG METHEMOGLOBIN 0.2 % (0.0-1.5); BG OXYGEN SATURATION 97.9 % (92.0-98.5); BG OXYHEMOGLOBIN 96.9 % (94.0-97.0); BG PCO2 44.4 mmHg (35.0-45.0); BG PH 7.483 (7.350-7.450); BG PO2 104.8 mmHg (75.0-100.0); BG SAMPLE SITE RIGHT RADIAL; BG TIDAL VOLUME(mL) 500 mL; BG TOTAL HEMOGLOBIN 10.6 g/dL (12.0-18.0); BG VENT MODE VENT - A/C; BG VENT RATE 12 set
[2019-09-03] VITALS (10 sets, daily range): BP systolic 105–131; BP diastolic 48–72
[2019-09-03] MEDS: IPRATROPIUM BROMIDE (0.02%) 0.5MG/2.5ML NEB HHN SCH ×4 (01:11→20:07)
[2019-09-03 06:44] LABS: CHLORIDE 109 mEq/L (98-107)
[2019-09-03 06:52] LABS: BASOPHILS % 0.8 % (0.0-2.0); EOSINOPHILS % 4.4 % (0.0-5.0); HEMATOCRIT. 33.9 % (42.0-52.0); HEMOGLOBIN. 10.7 g/dL (14.0-18.0); MEAN CORPUSCULAR HEMOGLOBIN 25.7 pg (28.0-32.0); MEAN CORPUSCULAR VOLUME 81.8 fL (80.0-94.0); MEAN PLATELET VOLUME 8.2 fl (7.4-10.4); MONOCYTES % 4.7 % (2.0-8.0); NEUTROPHILS % 74.1 % (40.0-76.0); PLATELET 319 x1000/uL (130-400); RED BLOOD CELL COUNT 4.14 mill/uL (4.7-6.1); RED CELL DISTRIBUTION WIDTH 20.7 % (11.6-14.6)
[2019-09-03] MEDS: POLYETHYLENE GLYCOL 3350 (17GM) 1 DOSE PACK PO SCH (09:09)
[2019-09-03] MEDS: PANTOPRAZOLE SODIUM 40 MG/VIAL IV SCH (09:09)
[2019-09-03] MEDS: DOCUSATE SODIUM SUGAR FREE 100MG/10ML UDC NG SCH ×2 (09:09→17:20)
[2019-09-03] MEDS: ASCORBIC ACID 250 MG TABLET PO SCH (09:09)
[2019-09-03] MEDS: FUROSEMIDE 40MG/4ML VIAL IVP SCH (09:09)
[2019-09-03] MEDS: LOSARTAN POTASSIUM 25 MG TABLET PO SCH (09:10)
[2019-09-03] MEDS: MULTIVITAMINS,THER W-MINERALS TABLET PO SCH (09:10)
[2019-09-03] MEDS: ZINC SULFATE 220 MG ( 50 ) CAPSULE PO SCH (09:10)
[2019-09-03] MEDS: METOPROLOL TARTRATE 25MG TABLET PO SCH ×2 (09:11→20:29)
[2019-09-03] MEDS: NYSTATIN/TRIAMCIN CREAM 30GM TOP SCH ×3 (09:12→17:20)
[2019-09-04] VITALS (12 sets, daily range): BP systolic 94–130; BP diastolic 53–79
[2019-09-04] MEDS: IPRATROPIUM BROMIDE (0.02%) 0.5MG/2.5ML NEB HHN SCH ×3 (01:35→13:40)
[2019-09-04] MEDS: DOCUSATE SODIUM SUGAR FREE 100MG/10ML UDC NG SCH ×2 (08:32→17:43)
[2019-09-04] MEDS: MULTIVITAMINS,THER W-MINERALS TABLET PO SCH (08:33)
[2019-09-04] MEDS: ZINC SULFATE 220 MG ( 50 ) CAPSULE PO SCH (08:33)
[2019-09-04] MEDS: PANTOPRAZOLE SODIUM 40 MG/VIAL IV SCH (08:33)
[2019-09-04] MEDS: POLYETHYLENE GLYCOL 3350 (17GM) 1 DOSE PACK PO SCH (08:33)
[2019-09-04] MEDS: FUROSEMIDE 40MG/4ML VIAL IVP SCH (08:33)
[2019-09-04] MEDS: LOSARTAN POTASSIUM 25 MG TABLET PO SCH (08:34)
[2019-09-04] MEDS: ASCORBIC ACID 250 MG TABLET PO SCH (08:34)
[2019-09-04] MEDS: METOPROLOL TARTRATE 25MG TABLET PO SCH ×2 (08:35→20:48)
[2019-09-04] MEDS: NYSTATIN/TRIAMCIN CREAM 30GM TOP SCH ×3 (08:37→17:43)
[2019-09-04] MEDS: ACETAMINOPHEN 325MG TABLET PO PRN ×2 (14:16→20:47)
[2019-09-04] MEDS: IPRATROPIUM/ALBUTEROL 0.5-3(2.5)MG/3ML NEB HHN PRN (20:10)
[2019-09-05] VITALS (13 sets, daily range): BP systolic 96–126; BP diastolic 49–75
[2019-09-05] MEDS: IPRATROPIUM BROMIDE (0.02%) 0.5MG/2.5ML NEB HHN SCH ×4 (03:36→19:53)
[2019-09-05] MEDS: FUROSEMIDE 40MG/4ML VIAL IVP SCH (08:46)
[2019-09-05] MEDS: DOCUSATE SODIUM SUGAR FREE 100MG/10ML UDC NG SCH ×2 (08:46→17:51)
[2019-09-05] MEDS: MULTIVITAMINS,THER W-MINERALS TABLET PO SCH (08:46)
[2019-09-05] MEDS: PANTOPRAZOLE SODIUM 40 MG/VIAL IV SCH (08:46)
[2019-09-05] MEDS: ZINC SULFATE 220 MG ( 50 ) CAPSULE PO SCH (08:46)
[2019-09-05] MEDS: ASCORBIC ACID 250 MG TABLET PO SCH (08:47)
[2019-09-05] MEDS: LOSARTAN POTASSIUM 25 MG TABLET PO SCH (08:47)
[2019-09-05] MEDS: ACETAMINOPHEN 325MG TABLET PO PRN ×2 (08:47→20:51)
[2019-09-05] MEDS: METOPROLOL TARTRATE 25MG TABLET PO SCH ×2 (08:47→20:50)
[2019-09-05] MEDS: NYSTATIN/TRIAMCIN CREAM 30GM TOP SCH ×3 (08:48→17:51)
[2019-09-05] MEDS: POLYETHYLENE GLYCOL 3350 (17GM) 1 DOSE PACK PO SCH (08:48)
[2019-09-05] MEDS: IPRATROPIUM/ALBUTEROL 0.5-3(2.5)MG/3ML NEB HHN PRN (12:25)
[2019-09-05] MEDS: ENOXAPARIN 150MG/ML SYR SUBCUT SCH (20:50)
[2019-09-06] VITALS (11 sets, daily range): BP systolic 94–120; BP diastolic 46–66
[2019-09-06] MEDS: IPRATROPIUM BROMIDE (0.02%) 0.5MG/2.5ML NEB HHN SCH ×4 (02:00→20:26)
[2019-09-06 07:05] LABS: BASOPHILS % 1.2 % (0.0-2.0); HEMATOCRIT. 32.9 % (42.0-52.0); HEMOGLOBIN. 10.2 g/dL (14.0-18.0); LYMPHOCYTES % 14.9 % (20.0-50.0); MEAN CORPUSCULAR HEMOGLOBIN 26.1 pg (28.0-32.0); MEAN CORPUSCULAR VOLUME 84.4 fL (80.0-94.0); MEAN PLATELET VOLUME 9.4 fl (7.4-10.4); MONOCYTES % 5.4 % (2.0-8.0); NEUTROPHILS % 73.5 % (40.0-76.0); PLATELET 276 x1000/uL (130-400); RED CELL DISTRIBUTION WIDTH 22.1 % (11.6-14.6)
[2019-09-06 07:14] LABS: CHLORIDE 112 mEq/L (98-107)
[2019-09-06] MEDS: PANTOPRAZOLE SODIUM 40 MG/VIAL IV SCH (08:52)
[2019-09-06] MEDS: FUROSEMIDE 40MG/4ML VIAL IVP SCH (08:53)
[2019-09-06] MEDS: POLYETHYLENE GLYCOL 3350 (17GM) 1 DOSE PACK PO SCH (08:53)
[2019-09-06] MEDS: MULTIVITAMINS,THER W-MINERALS TABLET PO SCH (08:53)
[2019-09-06] MEDS: ZINC SULFATE 220 MG ( 50 ) CAPSULE PO SCH (08:53)
[2019-09-06] MEDS: DOCUSATE SODIUM SUGAR FREE 100MG/10ML UDC NG SCH ×2 (08:53→16:54)
[2019-09-06] MEDS: NYSTATIN/TRIAMCIN CREAM 30GM TOP SCH ×3 (08:53→16:54)
[2019-09-06] MEDS: METOPROLOL TARTRATE 25MG TABLET PO SCH ×2 (08:54→21:00)
[2019-09-06] MEDS: ASCORBIC ACID 250 MG TABLET PO SCH (08:54)
[2019-09-06] MEDS: LOSARTAN POTASSIUM 25 MG TABLET PO SCH (08:54)
[2019-09-06] MEDS: ENOXAPARIN 150MG/ML SYR SUBCUT SCH ×2 (08:55→21:32)
[2019-09-06] MEDS: DEXTROSE 5% WATER 1,000 ML IV SCH (11:36)
[2019-09-06] MEDS: IPRATROPIUM/ALBUTEROL 0.5-3(2.5)MG/3ML NEB HHN PRN (12:40)
[2019-09-06 13:44] LABS: PLATELET ESTIMATE NORMAL
[2019-09-07] VITALS (12 sets, daily range): BP systolic 94–119; BP diastolic 40–74
[2019-09-07] MEDS: DEXTROSE 5% WATER 1,000 ML IV SCH ×2 (00:01→14:25)
[2019-09-07] MEDS: ACETAMINOPHEN 325MG TABLET PO PRN ×3 (00:02→14:34)
[2019-09-07] MEDS: IPRATROPIUM BROMIDE (0.02%) 0.5MG/2.5ML NEB HHN SCH ×4 (02:06→20:32)
[2019-09-07] MEDS ORDERED: DIGOXIN 500MCG/2ML AMP IV NR (05:15)
[2019-09-07 06:43] LABS: CHLORIDE 109 mEq/L (98-107)
[2019-09-07] MEDS: MULTIVITAMINS,THER W-MINERALS TABLET PO SCH (08:57)
[2019-09-07] MEDS: ZINC SULFATE 220 MG ( 50 ) CAPSULE PO SCH (08:57)
[2019-09-07] MEDS: ASCORBIC ACID 250 MG TABLET PO SCH (08:57)
[2019-09-07] MEDS: FUROSEMIDE 40MG/4ML VIAL IVP SCH (08:57)
[2019-09-07] MEDS: POLYETHYLENE GLYCOL 3350 (17GM) 1 DOSE PACK PO SCH (08:57)
[2019-09-07] MEDS: LOSARTAN POTASSIUM 25 MG TABLET PO SCH (08:58)
[2019-09-07] MEDS: METOPROLOL TARTRATE 25MG TABLET PO SCH ×2 (08:59→21:24)
[2019-09-07] MEDS: NYSTATIN/TRIAMCIN CREAM 30GM TOP SCH ×3 (09:00→16:48)
[2019-09-07] MEDS: PANTOPRAZOLE SODIUM 40 MG/VIAL IV SCH (12:53)
[2019-09-07] MEDS: DOCUSATE SODIUM SUGAR FREE 100MG/10ML UDC NG SCH ×2 (12:53→16:48)
[2019-09-07] MEDS: ENOXAPARIN 150MG/ML SYR SUBCUT SCH ×2 (13:00→21:24)
[2019-09-07] MEDS ORDERED: POTASSIUM CHLORIDE INJ 40 MEQ in DEXT 5% WATER 250 ML IV NR (13:30)
[2019-09-08] VITALS (13 sets, daily range): BP systolic 103–138; BP diastolic 48–85
[2019-09-08] MEDS: IPRATROPIUM BROMIDE (0.02%) 0.5MG/2.5ML NEB HHN SCH ×3 (01:05→14:32)
[2019-09-08] MEDS: ACETAMINOPHEN 650MG/20.3ML UDC PO PRN ×3 (03:13→16:18)
[2019-09-08 06:59] LABS: BASOPHILS % 1.4 % (0.0-2.0); EOSINOPHILS % 4.8 % (0.0-5.0); HEMATOCRIT. 31.7 % (42.0-52.0); HEMOGLOBIN. 10.1 g/dL (14.0-18.0); LYMPHOCYTES % 18.7 % (20.0-50.0); MEAN CORPUSCULAR HEMOGLOBIN 26.3 pg (28.0-32.0); MEAN CORPUSCULAR VOLUME 82.4 fL (80.0-94.0); MEAN PLATELET VOLUME 9.5 fl (7.4-10.4); MONOCYTES % 6.1 % (2.0-8.0); PLATELET 333 x1000/uL (130-400); RED BLOOD CELL COUNT 3.85 mill/uL (4.7-6.1); RED CELL DISTRIBUTION WIDTH 22.6 % (11.6-14.6)
[2019-09-08 08:28] LABS: CHLORIDE 107 mEq/L (98-107)
[2019-09-08] MEDS: ENOXAPARIN 150MG/ML SYR SUBCUT SCH ×2 (08:45→22:04)
[2019-09-08] MEDS: PANTOPRAZOLE SODIUM 40 MG/VIAL IV SCH (08:46)
[2019-09-08] MEDS: POLYETHYLENE GLYCOL 3350 (17GM) 1 DOSE PACK PO SCH (08:46)
[2019-09-08] MEDS: DOCUSATE SODIUM SUGAR FREE 100MG/10ML UDC NG SCH ×2 (08:46→16:18)
[2019-09-08] MEDS: FUROSEMIDE 40MG/4ML VIAL IVP SCH (08:46)
[2019-09-08] MEDS: ZINC SULFATE 220 MG ( 50 ) CAPSULE PO SCH (08:47)
[2019-09-08] MEDS: METOPROLOL TARTRATE 25MG TABLET PO SCH ×2 (08:47→22:04)
[2019-09-08] MEDS: ASCORBIC ACID 250 MG TABLET PO SCH (08:47)
[2019-09-08] MEDS: MULTIVITAMINS,THER W-MINERALS TABLET PO SCH (08:47)
[2019-09-08] MEDS: LOSARTAN POTASSIUM 25 MG TABLET PO SCH (08:47)
[2019-09-08] MEDS: NYSTATIN/TRIAMCIN CREAM 30GM TOP SCH ×3 (08:51→16:18)
[2019-09-08] MEDS: DEXTROSE 5% WATER 1,000 ML IV SCH (16:19)
[2019-09-08] MEDS: IPRATROPIUM/ALBUTEROL 0.5-3(2.5)MG/3ML NEB HHN PRN (19:55)
[2019-09-09] VITALS (12 sets, daily range): BP systolic 89–140; BP diastolic 42–92
[2019-09-09] MEDS: ACETAMINOPHEN 650MG/20.3ML UDC PO PRN ×3 (00:35→21:56)
[2019-09-09] MEDS: IPRATROPIUM BROMIDE (0.02%) 0.5MG/2.5ML NEB HHN SCH ×4 (04:19→20:03)
[2019-09-09] MEDS: DEXTROSE 5% WATER 1,000 ML IV SCH (05:32)
[2019-09-09] MEDS: POLYETHYLENE GLYCOL 3350 (17GM) 1 DOSE PACK PO SCH (08:16)
[2019-09-09] MEDS: MULTIVITAMINS,THER W-MINERALS TABLET PO SCH (08:17)
[2019-09-09] MEDS: ZINC SULFATE 220 MG ( 50 ) CAPSULE PO SCH (08:17)
[2019-09-09] MEDS: DOCUSATE SODIUM SUGAR FREE 100MG/10ML UDC NG SCH ×2 (08:17→16:45)
[2019-09-09] MEDS: PANTOPRAZOLE SODIUM 40 MG/VIAL IV SCH (08:17)
[2019-09-09] MEDS: METOPROLOL TARTRATE 25MG TABLET PO SCH ×2 (08:18→21:56)
[2019-09-09] MEDS: LOSARTAN POTASSIUM 25 MG TABLET PO SCH (08:18)
[2019-09-09] MEDS: FUROSEMIDE 40MG/4ML VIAL IVP SCH (08:18)
[2019-09-09] MEDS: ENOXAPARIN 150MG/ML SYR SUBCUT SCH ×2 (08:18→21:57)
[2019-09-09] MEDS: ASCORBIC ACID 250 MG TABLET PO SCH (08:18)
[2019-09-09] MEDS: NYSTATIN/TRIAMCIN CREAM 30GM TOP SCH ×3 (08:20→17:44)
[2019-09-09] MEDS ORDERED: VANCOMYCIN 2,000 MG in DEXT 5% WATER 500 ML IV NR (17:30)
[2019-09-09] MEDS: METRONIDAZOLE 500 MG PREMIX 100 ML IV SCH (17:43)
[2019-09-09] MEDS: CEFEPIME 1,000 MG in DEXTROSE 5% WATER 50 ML IV SCH (17:43)
[2019-09-10] VITALS (12 sets, daily range): BP systolic 87–166; BP diastolic 55–76
[2019-09-10] MEDS: IPRATROPIUM/ALBUTEROL 0.5-3(2.5)MG/3ML NEB HHN PRN (02:13)
[2019-09-10] MEDS: METRONIDAZOLE 500 MG PREMIX 100 ML IV SCH ×3 (02:17→17:09)
[2019-09-10] MEDS: IPRATROPIUM BROMIDE (0.02%) 0.5MG/2.5ML NEB HHN SCH ×5 (02:19→20:40)
[2019-09-10] MEDS: CEFEPIME 1,000 MG in DEXTROSE 5% WATER 50 ML IV SCH ×2 (05:31→17:09)
[2019-09-10] MEDS: ACETAMINOPHEN 650MG/20.3ML UDC PO PRN ×2 (05:33→11:05)
[2019-09-10 07:10] LABS: BASOPHILS % 0.9 % (0.0-2.0); CHLORIDE 103 mEq/L (98-107); EOSINOPHILS % 3.7 % (0.0-5.0); HEMATOCRIT. 29.8 % (42.0-52.0); HEMOGLOBIN. 9.6 g/dL (14.0-18.0); LYMPHOCYTES % 17.6 % (20.0-50.0); MEAN CORPUSCULAR HEMOGLOBIN 26.9 pg (28.0-32.0); MEAN CORPUSCULAR VOLUME 83.2 fL (80.0-94.0); MEAN PLATELET VOLUME 9.7 fl (7.4-10.4); MONOCYTES % 6.7 % (2.0-8.0); NEUTROPHILS % 71.1 % (40.0-76.0); PLATELET 283 x1000/uL (130-400); RED BLOOD CELL COUNT 3.58 mill/uL (4.7-6.1)
[2019-09-10] MEDS: VANCOMYCIN 1 G PREMIX 200 ML IV SCH ×2 (08:12→21:52)
[2019-09-10] MEDS: PANTOPRAZOLE SODIUM 40 MG/VIAL IV SCH (08:24)
[2019-09-10] MEDS: FUROSEMIDE 40MG/4ML VIAL IVP SCH (08:24)
[2019-09-10] MEDS: MULTIVITAMINS,THER W-MINERALS TABLET PO SCH (08:24)
[2019-09-10] MEDS: ZINC SULFATE 220 MG ( 50 ) CAPSULE PO SCH (08:24)
[2019-09-10] MEDS: ASCORBIC ACID 250 MG TABLET PO SCH (08:24)
[2019-09-10] MEDS: DOCUSATE SODIUM SUGAR FREE 100MG/10ML UDC NG SCH ×2 (08:24→17:09)
[2019-09-10] MEDS: POLYETHYLENE GLYCOL 3350 (17GM) 1 DOSE PACK PO SCH (08:24)
[2019-09-10] MEDS: LOSARTAN POTASSIUM 25 MG TABLET PO SCH (08:24)
[2019-09-10] MEDS: ENOXAPARIN 150MG/ML SYR SUBCUT SCH ×2 (08:26→21:47)
[2019-09-10] MEDS: METOPROLOL TARTRATE 25MG TABLET PO SCH ×2 (08:26→21:48)
[2019-09-10] MEDS: NYSTATIN/TRIAMCIN CREAM 30GM TOP SCH ×3 (08:28→17:10)
[2019-09-10] MEDS ORDERED: POTASSIUM CHLORIDE 20MEQ/PACKET PO NR (10:45)
[2019-09-10] MEDS: POTASSIUM CHLORIDE 20MEQ/PACKET PO SCH (11:04)
[2019-09-11] VITALS (12 sets, daily range): BP systolic 94–139; BP diastolic 42–87
[2019-09-11] MEDS: METRONIDAZOLE 500 MG PREMIX 100 ML IV SCH ×3 (00:59→17:39)
[2019-09-11] MEDS: IPRATROPIUM BROMIDE (0.02%) 0.5MG/2.5ML NEB HHN SCH ×4 (01:27→20:31)
[2019-09-11 05:08] LABS: CHLORIDE 103 mEq/L (98-107)
[2019-09-11] MEDS: CEFEPIME 1,000 MG in DEXTROSE 5% WATER 50 ML IV SCH ×2 (05:13→17:39)
[2019-09-11 06:38] LABS: BASOPHILS % 1.1 % (0.0-2.0); EOSINOPHILS % 3.4 % (0.0-5.0); HEMATOCRIT. 31.9 % (42.0-52.0); HEMOGLOBIN. 10.3 g/dL (14.0-18.0); LYMPHOCYTES % 16.6 % (20.0-50.0); MEAN CORPUSCULAR HEMOGLOBIN 26.9 pg (28.0-32.0); MEAN CORPUSCULAR VOLUME 83.7 fL (80.0-94.0); MEAN PLATELET VOLUME 10.1 fl (7.4-10.4); MONOCYTES % 6.8 % (2.0-8.0); NEUTROPHILS % 72.1 % (40.0-76.0); PLATELET 308 x1000/uL (130-400); RED BLOOD CELL COUNT 3.81 mill/uL (4.7-6.1); RED CELL DISTRIBUTION WIDTH 23.3 % (11.6-14.6)
[2019-09-11] MEDS: FUROSEMIDE 40MG/4ML VIAL IVP SCH (08:25)
[2019-09-11] MEDS: METOPROLOL TARTRATE 25MG TABLET PO SCH ×2 (08:25→20:10)
[2019-09-11] MEDS: ZINC SULFATE 220 MG ( 50 ) CAPSULE PO SCH (08:25)
[2019-09-11] MEDS: POTASSIUM CHLORIDE 20MEQ/PACKET PO SCH (08:25)
[2019-09-11] MEDS: PANTOPRAZOLE SODIUM 40 MG/VIAL IV SCH (08:25)
[2019-09-11] MEDS: ASCORBIC ACID 250 MG TABLET PO SCH (08:26)
[2019-09-11] MEDS: LOSARTAN POTASSIUM 25 MG TABLET PO SCH (08:26)
[2019-09-11] MEDS: MULTIVITAMINS,THER W-MINERALS TABLET PO SCH (08:26)
[2019-09-11] MEDS: POLYETHYLENE GLYCOL 3350 (17GM) 1 DOSE PACK PO SCH (08:27)
[2019-09-11] MEDS: ACETAMINOPHEN 650MG/20.3ML UDC PO PRN (08:27)
[2019-09-11] MEDS: DOCUSATE SODIUM SUGAR FREE 100MG/10ML UDC NG SCH ×2 (08:27→16:39)
[2019-09-11] MEDS: VANCOMYCIN 1 G PREMIX 200 ML IV SCH (08:32)
[2019-09-11] MEDS: NYSTATIN/TRIAMCIN CREAM 30GM TOP SCH ×3 (08:34→16:38)
[2019-09-11] MEDS: ENOXAPARIN 150MG/ML SYR SUBCUT SCH ×2 (08:35→20:11)
[2019-09-11] MEDS: VANCOMYCIN 1250MG in DEXTROSE 5% WATER 250ML IV SCH (17:39)
[2019-09-12] VITALS (12 sets, daily range): BP systolic 95–122; BP diastolic 45–65
[2019-09-12] MEDS: METRONIDAZOLE 500MG TABLET PO SCH ×3 (01:11→16:22)
[2019-09-12] MEDS: IPRATROPIUM BROMIDE (0.02%) 0.5MG/2.5ML NEB HHN SCH ×4 (01:59→20:21)
[2019-09-12] MEDS: CEFEPIME 1,000 MG in DEXTROSE 5% WATER 50 ML IV SCH ×2 (04:11→16:22)
[2019-09-12] MEDS: VANCOMYCIN 1250MG in DEXTROSE 5% WATER 250ML IV SCH (06:07)
[2019-09-12] MEDS: MULTIVITAMINS,THER W-MINERALS TABLET PO SCH (08:57)
[2019-09-12] MEDS: POTASSIUM CHLORIDE 20MEQ/PACKET PO SCH (08:57)
[2019-09-12] MEDS: ASCORBIC ACID 250 MG TABLET PO SCH (08:57)
[2019-09-12] MEDS: ZINC SULFATE 220 MG ( 50 ) CAPSULE PO SCH (08:57)
[2019-09-12] MEDS: LOSARTAN POTASSIUM 25 MG TABLET PO SCH (08:57)
[2019-09-12] MEDS: FUROSEMIDE 40MG/4ML VIAL IVP SCH (08:59)
[2019-09-12] MEDS: PANTOPRAZOLE SODIUM 40 MG/VIAL IV SCH (08:59)
[2019-09-12] MEDS: METOPROLOL TARTRATE 25MG TABLET PO SCH ×2 (08:59→21:00)
[2019-09-12] MEDS: DOCUSATE SODIUM SUGAR FREE 100MG/10ML UDC NG SCH ×2 (09:00→16:23)
[2019-09-12] MEDS: POLYETHYLENE GLYCOL 3350 (17GM) 1 DOSE PACK PO SCH (09:00)
[2019-09-12] MEDS: ENOXAPARIN 150MG/ML SYR SUBCUT SCH (09:00)
[2019-09-12] MEDS: AMPICILLIN SOD/SULBACTAM NA 3 G in SODIUM CHLORIDE 0.9% 100 ML IV SCH (18:31)
[2019-09-13] VITALS (12 sets, daily range): BP systolic 87–150; BP diastolic 33–93
[2019-09-13] MEDS: AMPICILLIN SOD/SULBACTAM NA 3 G in SODIUM CHLORIDE 0.9% 100 ML IV SCH ×4 (00:02→17:12)
[2019-09-13] MEDS: ENOXAPARIN 150MG/ML SYR SUBCUT SCH ×3 (00:03→20:06)
[2019-09-13] MEDS: IPRATROPIUM BROMIDE (0.02%) 0.5MG/2.5ML NEB HHN SCH ×4 (02:08→19:49)
[2019-09-13] MEDS: ONDANSETRON HCL 4MG/2ML INJ IV PRN (02:28)
[2019-09-13] MEDS: ACETAMINOPHEN 650MG/20.3ML UDC PO PRN (08:22)
[2019-09-13] MEDS: DOCUSATE SODIUM SUGAR FREE 100MG/10ML UDC NG SCH ×2 (08:23→16:05)
[2019-09-13] MEDS: ZINC SULFATE 220 MG ( 50 ) CAPSULE PO SCH (08:23)
[2019-09-13] MEDS: MULTIVITAMINS,THER W-MINERALS TABLET PO SCH (08:23)
[2019-09-13] MEDS: METOPROLOL TARTRATE 25MG TABLET PO SCH ×2 (08:23→20:10)
[2019-09-13] MEDS: LOSARTAN POTASSIUM 25 MG TABLET PO SCH (08:23)
[2019-09-13] MEDS: FUROSEMIDE 40MG/4ML VIAL IVP SCH (08:24)
[2019-09-13] MEDS: PANTOPRAZOLE SODIUM 40 MG/VIAL IV SCH (08:24)
[2019-09-13] MEDS: POTASSIUM CHLORIDE 20MEQ/PACKET PO SCH (08:24)
[2019-09-13] MEDS: POLYETHYLENE GLYCOL 3350 (17GM) 1 DOSE PACK PO SCH (08:24)
[2019-09-13] MEDS: ASCORBIC ACID 250 MG TABLET PO SCH (08:24)
[2019-09-13] MEDS ORDERED: POTASSIUM CHLORIDE INJ 40 MEQ in DEXT 5% WATER 250 ML IV NR (16:00)
[2019-09-14] VITALS (12 sets, daily range): BP systolic 93–124; BP diastolic 53–77
[2019-09-14] MEDS: AMPICILLIN SOD/SULBACTAM NA 3 G in SODIUM CHLORIDE 0.9% 100 ML IV SCH ×5 (00:15→23:57)
[2019-09-14] MEDS: LORAZEPAM 1MG TABLET PO PRN ×2 (00:25→09:50)
[2019-09-14] MEDS: IPRATROPIUM BROMIDE (0.02%) 0.5MG/2.5ML NEB HHN SCH ×4 (01:51→20:15)
[2019-09-14] MEDS: PANTOPRAZOLE SODIUM 40 MG/VIAL IV SCH (08:02)
[2019-09-14] MEDS: FUROSEMIDE 40MG/4ML VIAL IVP SCH (08:02)
[2019-09-14] MEDS: ASCORBIC ACID 250 MG TABLET PO SCH (08:02)
[2019-09-14] MEDS: POLYETHYLENE GLYCOL 3350 (17GM) 1 DOSE PACK PO SCH (08:02)
[2019-09-14] MEDS: MULTIVITAMINS,THER W-MINERALS TABLET PO SCH (08:02)
[2019-09-14] MEDS: POTASSIUM CHLORIDE 20MEQ/PACKET PO SCH (08:02)
[2019-09-14] MEDS: ZINC SULFATE 220 MG ( 50 ) CAPSULE PO SCH (08:03)
[2019-09-14] MEDS: ENOXAPARIN 150MG/ML SYR SUBCUT SCH ×2 (08:04→21:15)
[2019-09-14] MEDS: ACETAMINOPHEN 650MG/20.3ML UDC PO PRN ×2 (08:16→23:57)
[2019-09-14] MEDS: DOCUSATE SODIUM SUGAR FREE 100MG/10ML UDC NG SCH ×2 (08:38→17:33)
[2019-09-14] MEDS: METOPROLOL TARTRATE 25MG TABLET PO SCH ×2 (09:00→11:15)
[2019-09-14] MEDS: LOSARTAN POTASSIUM 25 MG TABLET PO SCH (09:00)
[2019-09-14] MEDS: SODIUM CHLORIDE 0.45% 1,000 ML IV SCH ×2 (09:39→21:31)
[2019-09-14] MEDS: MIDODRINE HCL 5MG TABLET PO SCH ×3 (11:11→17:33)
[2019-09-14] MEDS ORDERED: DIGOXIN 500MCG/2ML AMP IV SCH (15:15)
[2019-09-14] MEDS: CARVEDILOL 3.125 MG TABLET PO SCH (21:00)
[2019-09-15] VITALS (12 sets, daily range): BP systolic 100–127; BP diastolic 49–87
[2019-09-15] MEDS: IPRATROPIUM BROMIDE (0.02%) 0.5MG/2.5ML NEB HHN SCH ×3 (01:51→21:18)
[2019-09-15] MEDS: AMPICILLIN SOD/SULBACTAM NA 3 G in SODIUM CHLORIDE 0.9% 100 ML IV SCH ×3 (05:08→17:20)
[2019-09-15] MEDS: LORAZEPAM 1MG TABLET PO PRN (05:08)
[2019-09-15] MEDS ORDERED: DIGOXIN 500MCG/2ML AMP IV NR (08:15)
[2019-09-15] MEDS: ASCORBIC ACID 250 MG TABLET PO SCH (08:33)
[2019-09-15] MEDS: MULTIVITAMINS,THER W-MINERALS TABLET PO SCH (08:33)
[2019-09-15] MEDS: MIDODRINE HCL 5MG TABLET PO SCH ×3 (08:33→17:22)
[2019-09-15] MEDS: LOSARTAN POTASSIUM 25 MG TABLET PO SCH (08:33)
[2019-09-15] MEDS: PANTOPRAZOLE SODIUM 40 MG/VIAL IV SCH (08:34)
[2019-09-15] MEDS: POLYETHYLENE GLYCOL 3350 (17GM) 1 DOSE PACK PO SCH (08:34)
[2019-09-15] MEDS: CARVEDILOL 3.125 MG TABLET PO SCH ×2 (08:34→21:00)
[2019-09-15] MEDS: POTASSIUM CHLORIDE 20MEQ/PACKET PO SCH (08:34)
[2019-09-15] MEDS: DOCUSATE SODIUM SUGAR FREE 100MG/10ML UDC NG SCH ×2 (08:34→17:00)
[2019-09-15] MEDS: ZINC SULFATE 220 MG ( 50 ) CAPSULE PO SCH (08:34)
[2019-09-15] MEDS: ENOXAPARIN 150MG/ML SYR SUBCUT SCH (08:36)
[2019-09-15] MEDS: ACETAMINOPHEN 650MG/20.3ML UDC PO PRN (09:48)
[2019-09-15 13:14] LABS: CHLORIDE 106 mEq/L (98-107)
[2019-09-15 13:21] LABS: BG BASE EXCESS 7.2 mmol/L (-2.0-2.0); BG CARBOXYHEMOGLOBIN 0.3 % (0.5-1.5); BG DEOXYHEMOGLOBIN 5.1 % (0.0-5.0); BG FRACTION INSPIRED OXYGEN 40; BG HCO3 ACT 32.5 mmol/L (22.0-26.0); BG METHEMOGLOBIN 0.3 % (0.0-1.5); BG OXYGEN SATURATION 94.9 % (92.0-98.5); BG OXYHEMOGLOBIN 94.3 % (94.0-97.0); BG PCO2 49.5 mmHg (35.0-45.0); BG PH 7.435 (7.350-7.450); BG PO2 78.8 mmHg (75.0-100.0); BG PRESSURE SUPPORT 10; BG SAMPLE SITE RIGHT RADIAL; BG TOTAL HEMOGLOBIN 10.4 g/dL (12.0-18.0); BG VENT MODE VENT - CPAP
[2019-09-15] MEDS: RISPERIDONE 1MG TABLET PO SCH (21:43)
[2019-09-15] MEDS: APIXABAN 5 MG TABLET PO SCH (21:43)
[2019-09-15] MEDS: SODIUM CHLORIDE 0.45% 1,000 ML IV SCH (21:44)
[2019-09-16] VITALS (13 sets, daily range): BP systolic 106–128; BP diastolic 52–80
[2019-09-16] MEDS: IPRATROPIUM BROMIDE (0.02%) 0.5MG/2.5ML NEB HHN SCH ×4 (03:51→21:20)
[2019-09-16] MEDS: PANTOPRAZOLE SODIUM 40 MG/VIAL IV SCH (08:05)
[2019-09-16] MEDS: ZINC SULFATE 220 MG ( 50 ) CAPSULE PO SCH (08:05)
[2019-09-16] MEDS: ASCORBIC ACID 250 MG TABLET PO SCH (08:06)
[2019-09-16] MEDS: CARVEDILOL 3.125 MG TABLET PO SCH ×2 (08:06→21:14)
[2019-09-16] MEDS: POTASSIUM CHLORIDE 20MEQ/PACKET PO SCH (08:07)
[2019-09-16] MEDS: MIDODRINE HCL 5MG TABLET PO SCH ×3 (08:07→17:42)
[2019-09-16] MEDS: LOSARTAN POTASSIUM 25 MG TABLET PO SCH (08:07)
[2019-09-16] MEDS: MULTIVITAMINS,THER W-MINERALS TABLET PO SCH (08:07)
[2019-09-16] MEDS: APIXABAN 5 MG TABLET PO SCH ×2 (08:07→21:13)
[2019-09-16] MEDS: DOCUSATE SODIUM SUGAR FREE 100MG/10ML UDC NG SCH ×2 (08:08→17:00)
[2019-09-16] MEDS: POLYETHYLENE GLYCOL 3350 (17GM) 1 DOSE PACK PO SCH (08:08)
[2019-09-16] MEDS: LORAZEPAM 1MG TABLET PO PRN (12:45)
[2019-09-16] MEDS: RISPERIDONE 1MG TABLET PO SCH (21:13)
[2019-09-17 00:13] VITALS: BP 110/61
[2019-09-17] MEDS: IPRATROPIUM BROMIDE (0.02%) 0.5MG/2.5ML NEB HHN SCH ×2 (01:32→08:12)
[2019-09-17 02:13] VITALS: BP 107/59
[2019-09-17 04:13] VITALS: BP 101/55
[2019-09-17 06:13] VITALS: BP 108/55
[2019-09-17 08:00] VITALS: BP 103/57
[2019-09-17] MEDS: APIXABAN 5 MG TABLET PO SCH (08:48)
[2019-09-17] MEDS: PANTOPRAZOLE SODIUM 40 MG/VIAL IV SCH (08:48)
[2019-09-17] MEDS: MIDODRINE HCL 5MG TABLET PO SCH (08:48)
[2019-09-17] MEDS: CARVEDILOL 3.125 MG TABLET PO SCH (08:48)
[2019-09-17] MEDS: POTASSIUM CHLORIDE 20MEQ/PACKET PO SCH (08:48)
[2019-09-17] MEDS: POLYETHYLENE GLYCOL 3350 (17GM) 1 DOSE PACK PO SCH (09:00)
[2019-09-17] MEDS: LOSARTAN POTASSIUM 25 MG TABLET PO SCH (09:00)
[2019-09-17] MEDS: DOCUSATE SODIUM SUGAR FREE 100MG/10ML UDC NG SCH (09:00)
[2019-09-17] MEDS: MULTIVITAMINS,THER W-MINERALS TABLET PO SCH (09:33)
[2019-09-17] MEDS: ZINC SULFATE 220 MG ( 50 ) CAPSULE PO SCH (09:33)
[2019-09-17] MEDS: ASCORBIC ACID 250 MG TABLET PO SCH (09:33)
[2019-09-17] MEDS: ACETAMINOPHEN 650MG/20.3ML UDC PO PRN (09:34)
== END 2019-09-17 10:20 | DRG 4 ==
LOC: ER 14:36 → MICUSO 15:30 → CVICU 08-22 11:45 → 5EST 08-30 01:40
PROVIDERS: ADMIT Hospitalist; ATTEND Hospitalist
PROC: 5A1955Z Respiratory Ventilation, Greater than 96 Consecutive Hours (ICD-10-PCS; principal; 2019-08-22)
PROC: 0BH17EZ Insertion of Endotracheal Airway into Trachea, Via Natural or Artificial Opening (ICD-10-PCS; 2019-08-22)
PROC: 05H533Z Insertion of Infusion Device into Right Subclavian Vein, Percutaneous Approach (ICD-10-PCS; 2019-08-22)
PROC: B546ZZA Ultrasonography of Right Subclavian Vein, Guidance (ICD-10-PCS; 2019-08-22)
PROC: 4A10X4Z Monitoring of Central Nervous Electrical Activity, External Approach (ICD-10-PCS; 2019-08-25)
PROC: 0B113F4 Bypass Trachea to Cutaneous with Tracheostomy Device, Percutaneous Approach (ICD-10-PCS; 2019-08-28)
PROC: 0GBJ3ZZ Excision of Thyroid Gland Isthmus, Percutaneous Approach (ICD-10-PCS; 2019-08-28)
PROC: 0DH63UZ Insertion of Feeding Device into Stomach, Percutaneous Approach (ICD-10-PCS; 2019-08-28)
DX: A41.59 Other Gram-negative sepsis (principal); T43.621A Poisoning by amphetamines, accidental (unintentional), initial encounter; I21.4 Non-ST elevation (NSTEMI) myocardial infarction; I63.9 Cerebral infarction, unspecified; E43 Unspecified severe protein-calorie malnutrition; I50.43 Acute on chronic combined systolic (congestive) and diastolic (congestive) heart failure; G92 Toxic encephalopathy; N17.9 Acute kidney failure, unspecified; I42.9 Cardiomyopathy, unspecified; T40.3X1A Poisoning by methadone, accidental (unintentional), initial encounter; E87.1 Hypo-osmolality and hyponatremia; I27.20 Pulmonary hypertension, unspecified; E66.9 Obesity, unspecified; R04.0 Epistaxis; K72.90 Hepatic failure, unspecified without coma; I48.20 Chronic atrial fibrillation, unspecified; E66.01 Morbid (severe) obesity due to excess calories; L89.326 Pressure-induced deep tissue damage of left buttock; L89.316 Pressure-induced deep tissue damage of right buttock; D64.9 Anemia, unspecified; D72.829 Elevated white blood cell count, unspecified; Z20.828 Contact with and (suspected) exposure to other viral communicable diseases; E87.2 Acidosis; J96.01 Acute respiratory failure with hypoxia; I36.1 Nonrheumatic tricuspid (valve) insufficiency; K29.70 Gastritis, unspecified, without bleeding; B96.1 Klebsiella pneumoniae [K. pneumoniae] as the cause of diseases classified elsewhere; R13.10 Dysphagia, unspecified; J18.9 Pneumonia, unspecified organism; N39.0 Urinary tract infection, site not specified; E87.6 Hypokalemia; I11.0 Hypertensive heart disease with heart failure; Z68.38 Body mass index [BMI] 38.0-38.9, adult; Y92.89 Other specified places as the place of occurrence of the external cause; Z78.1 Physical restraint status; Z99.11 Dependence on respirator [ventilator] status
CPT/HCPCS: 36415; 36600; 70551; 71045; 76937; 80048; 80053; 80061; 80202; 80305; 80307; 80320; 80329; 81003; 82375; 82805; 82962; 83605; 83735; 83880; 84134; 84443; 84478; 84484; 85025; 87015; 87045; 87070; 87077; 87186; 87427; 87449; 87493; 92950; 93005; 93306; 93880; 93970; 93971; 94002; 94003; 94640; 95816; 99291; 99292; C1725; C9113; J0295; J0690; J0692; J1160; J1650; J1940; J2060; J2250; J2270; J2310; J2405; J2543; J2704; J2765; J3010; J3370; J3480; J3490; J7030; J7040; J7050; J7060; J7070; J7608; G0480; U0003-CS